=== PATIENT | male | born 1980 | race Caucasian/White ===

== ENCOUNTER 2020-05-07 06:48 | Day surgery (SDC) | payer OTHER, SELFPAY ==
[2020-05-04 10:00] LABS: ALKALINE PHOSPHATASE 115 U/L (46-116); ALT/SGPT 25 U/L (16-63); AST/SGOT 20 U/L (15-37); BILIRUBIN TOTAL 0.15 mg/dL (0.20-1.00); CALCIUM 9.2 mg/dL (8.5-10.1); CARBON DIOXIDE 31.5 mmol/L (21-32); CHLORIDE SERUM 103 mmol/L (98-107); CREATININE SERUM 0.9 mg/dL (0.7-1.3); GFR1 > 60 mL/min; GLUCOSE SERUM 82 mg/dL (74-106); PLATELET COUNT 241 x10^3mcL (152-348); SODIUM SERUM 138 mmol/L (136-145); TOTAL PROTEIN, SERUM 7.8 g/dL (6.4-8.2)
[2020-05-04 10:01] LABS: RED CELL DISTRIBUTION WIDTH 15.5 % (12.1-16.2)
[~2020-05-07] VITALS: Ht 165.1 cm; Wt 84.4 kg
[2020-05-07 07:08] VITALS: BP 145/89
[2020-05-07 14:36] VITALS: BP 117/62
== END 2020-05-07 14:35 | disposition home or self-care (01) ==
LOC: DS 06:48 → OR 10:30 → DS 10:30
PROVIDERS: ATTEND Surgery
DX: K40.90 Unilateral inguinal hernia, without obstruction or gangrene, not specified as recurrent (principal); R56.9 Unspecified convulsions; Z98.890 Other specified postprocedural states
CPT/HCPCS: C1781; J0131; J0690; J1170; J2405; J2704; J3010; J3490; J7120